=== PATIENT | male | born 1985 | race Caucasian/White ===

== ENCOUNTER 2024-06-06 20:35 | Emergency (ER) | payer MEDICAID ==
[~2024-06-06] VITALS: Ht 167.6 cm; Wt 84.4 kg
[2024-06-06 20:54] VITALS: BP 116/75; PULSE 55; RESP 20; TEMP 98.3; O2SAT 96
[2024-06-06 21:42] LABS: BASOPHILS # (AUTO) 0.1 K/uL (0.00-0.22); BASOPHILS % (AUTO) 0.6 % (0.0-2.0); EOSINOPHILS # (AUTO) 0.2 K/uL (0-0.4); EOSINOPHILS % (AUTO) 1.7 % (0.0-4.0); HEMATOCRIT 46.1 % (36-52); HEMOGLOBIN 15.5 g/dL (12.0-18.0); LYMPHOCYTES # (AUTO) 2.5 K/uL (2.0-11.5); LYMPHOCYTES % (AUTO) 23.2 % (20.5-51.1); MEAN CORPUSCULAR HEMOGLOBIN 30 pg (27-31); MEAN CORPUSCULAR HGB CONC 34 g/dL (33-37); MEAN CORPUSCULAR VOLUME 90.3 fL (80-94); MONOCYTES # (AUTO) 0.8 K/uL (0.8-1.0); MONOCYTES % (AUTO) 7.1 % (1.7-9.3); NEUTROPHILS # (AUTO) 7.3 K/uL (1.8-7.7); NEUTROPHILS % (AUTO) 67.4 % (42.2-75.2); PLATELET COUNT (AUTO) 292 K/uL (140-450); RED BLOOD CELL COUNT(AUTO) 5.11 MIL/uL (4.20-6.10); RED CELL DISTRIBUTION WIDTH 13.8 % (11.6-13.7); WHITE BLOOD COUNT (AUTO) 10.9 K/uL (4.8-10.8)
[2024-06-06 22:04] LABS: ALBUMIN 3.5 g/dL (3.4-5.0); ANION GAP 9.2 (8-16); CALCIUM 8.9 mg/dL (8.5-10.1); CARBON DIOXIDE 29.4 mmol/L (21-32); POTASSIUM 3.6 mmol/L (3.5-5.1); TOTAL BILIRUBIN 0.3 mg/dL (0.0-1.0); TOTAL PROTEIN, SERUM 7.6 g/dL (6.4-8.2)
[2024-06-06] MEDS: KETOROLAC 30 MG/ML VIAL IM ONE (22:52)
[2024-06-06] MEDS: DICYCLOMINE HCL LIQUID 10 MG/5 ML UDC PO ONE (22:53)
[2024-06-06] MEDS ORDERED: MAGN296S70 PO (23:02)
[2024-06-06] MEDS ORDERED: MAG355OR2 PO (23:02)
[2024-06-06] MEDS ORDERED: SENN1TAB80 PO (23:02)
[2024-06-06 23:26] VITALS: BP 116/75; PULSE 55; RESP 20; TEMP 98.3; O2SAT 96
== END 2024-06-06 23:25 | disposition home or self-care (01) ==
LOC: MED 20:35
DX: K59.00 Constipation, unspecified (principal); E78.5 Hyperlipidemia, unspecified; E78.00 Pure hypercholesterolemia, unspecified
CPT/HCPCS: 36415; 74018; 80053; 83690; 85025; 96372; 99284; J1885